=== PATIENT | female | born 1975 | race Caucasian/White ===

== ENCOUNTER 2016-11-14 22:59 | Emergency (ER) | payer BC ==
[2016-11-14 23:09] VITALS: BP 96/66; PULSE 58; TEMP 97.6; BMI 14.5
[2016-11-14] MEDS ORDERED: IBUPROFEN 400 MG TABLET (FP) PO ONE ×2 (23:19→23:23)
--- NOTE | 2016-11-14 23:25 | PDOC ---
History of Present Illness - General Chief Complaint: Chest Pain Stated Complaint: CHEST PAIN Time Seen by Provider: 11/14/16 23:00 - History of Present Illness Initial Comments: 11/14/16 23:19 41 y f hx of anorexia, admitted to in patient services for it. GERD. pte c/o lt sided chest pain on and off for a couple of weeks. no palpitations, dizziness, n /v. no sob. pain became worse today at ~12noon. constant. not related to activity. radiates to lt arm. in ed, pain still present. hx of pna/flu/ bronchitis last month. no fever 11/14/16 23:22 Past History - Past Medical History Allergies/Adverse Reactions: Allergies Allergy/AdvReac Type Severity Reaction Status Date / Time No Known Allergies Allergy Unverified 11/14/16 23:14 GI Disorders: Yes (HIATAL HERNEA, GERD, IBS) Psychiatric Problems: Yes (ANOREXIA) Other medical history: RAYNAUDS, OSTEOPOROSIS - Psycho/Social/Smoking Cessation Hx Suicidal Ideation: No Smoking History: Never smoked Review of Systems - Review of Systems Able to Perform ROS?: Yes Is the patient limited [place]ian proficient: No Constitutional: No: Symptoms Reported HEENTM: No: Symptoms Reported Respiratory: No: Symptoms reported Cardiac (ROS): Yes: Symptoms Reported, See HPI, Chest Pain ABD/GI: No: Symptoms Reported : No: Symptoms Reported Musculoskeletal: No: Symptoms Reported Neurological: No: Symptoms reported Psychiatric: Yes: Other (see hpi) All Other Systems: Reviewed and Negative *Physical Exam - Vital Signs Last Vital Signs Temp Pulse Resp BP Pulse Ox 97.6 F 58 L 16 96/66 100 11/14/16 23:07 11/14/16 23:07 11/14/16 23:07 11/14/16 23:07 11/14/16 23:07 - Physical Exam General Appearance: Yes: Appropriately Dressed, Cachetic. No: Apparent Distress HEENT: positive: Normal ENT Inspection Neck: positive: Supple. negative: Tender Respiratory/Chest: positive: Chest Tender (lt sided 4th ICS), Lungs Clear, Normal Breath Sounds. negative: Respiratory Distress Cardiovascular: positive: Regular Rhythm, Regular Rate, Bradycardia Neurologic: positive: Fully Oriented, Alert, Normal Mood/Affect, Normal Response , Motor Strength 5/5 *DC/Admit/Observation/Transfer Diagnosis at time of Disposition: Chest wall pain - Discharge Dispostion Disposition: HOME Condition at time of disposition: Stable - Patient Instructions Printed Discharge Instructions: DI for Atypical Chest Pain Additional Instructions: IBUPROFEN 200 MG 4 TIMES A DAY FOR 5 DAYS EAT FREQUENT, SMALL MEALS THROUGHOUT THE DAY RETURN IF WORSENING PAIN OR NEW SYMPTOMS
--- NOTE | 2016-11-17 08:42 | EKG ---
Test Reason : Blood Pressure : / mmHG Vent. Rate : 048 BPM Atrial Rate : 048 BPM P-R Int : 128 ms QRS Dur : 120 ms QT Int : 428 ms P-R-T Axes : 066 089 072 degrees QTc Int : 382 ms SINUS BRADYCARDIA NON-SPECIFIC INTRA-VENTRICULAR CONDUCTION DELAY WHEN COMPARED WITH ECG OF 14-NOV-2016 09:36, NO SIGNIFICANT CHANGE WAS FOUND Confirmed by SOUMYA RAY MD ([id number]) on 11/17/2016 8:42:03 AM Referred By: MD VICENTE Confirmed By:SOUMYA RAY MD
== END 2016-11-14 23:27 | disposition home or self-care (01) ==
LOC: FER 22:59
DX: R07.89 Other chest pain (principal); R63.0 Anorexia; Z68.1 Body mass index [BMI] 19.9 or less, adult; I73.00 Raynaud's syndrome without gangrene; M81.0 Age-related osteoporosis without current pathological fracture; K21.9 Gastro-esophageal reflux disease without esophagitis; K58.9 Irritable bowel syndrome, unspecified
CPT/HCPCS: 93005; 99281-25

== ENCOUNTER 2016-11-25 20:19 | Emergency (ER) | payer BC ==
[2016-11-25] MEDS ORDERED: SODIUM CHLORIDE 1,000 ML IV ONE (20:33)
[2016-11-25 20:39] VITALS: TEMP 98.3; BMI 14.2
[2016-11-25 20:51] LABS: PH,URINE 5.5 (4.5-8); URINE APPEARANCE Clear; URINE BILIRUBIN Negative (NEGATIVE); URINE BLOOD Negative (NEGATIVE); URINE GLUCOSE (UA) Negative (NEGATIVE); URINE KETONE Negative (NEGATIVE); URINE LEUK ESTERASE Negative (NEGATIVE); URINE NITRITE Negative (NEGATIVE); URINE PROTEIN Negative (NEGATIVE); URINE UROBILINOGEN 0.2 E.U/dl (0.2-1.0)
[2016-11-25 20:52] LABS: URINE COLOR YELLOW
--- NOTE | 2016-11-25 21:00 | PDOC ---
History of Present Illness - General History Source: Patient Exam Limitations: No Limitations - History of Present Illness Initial Comments: 11/25/16 21:01 The patient is a 41 year old female with a PMHx of anorexia presents to the ED sent from eating disorder facility for low blood pressure. Patient was discharged from [facility] yesterday after a 6 day stay for fever, body aches, and rash. The patient reports that she felt fine today, but around mid afternoon she experienced subjective fever and chills. She currently reports headache. She reports her BP is normally 90/50. She denies nausea, vomiting, diarrhea. She denies chest pain, SOB. PAST MEDICAL HISTORY: anorexia PAST SURGICAL HISTORY: no significant history FAMILY HISTORY: no pertinent history SOCIAL HISTORY: Pt lives with family and is employed. MEDICATIONS: reviewed ALLERGIES: As per nursing notes Review of Systems: General: + fevers, + chills, no weakness, no weight loss HEENT: No change in vision. No sore throat,. No ear pain CardioVascular: No chest pain or shortness of breath Respiratory: No cough, or wheezing. Gastrointestinal: no nausea, vomiting, diarrhea or constipation, No rectal bleeding Genitourinary: No dysuria, hematuria, or frequency Musculoskeletal: No joint or muscle pain or swelling Neurologic: + headache, No vertigo, dizziness or loss of consciousness Psychiatric: No depression Skin: No rashes or easy bruising Endocrine: No increased thirst or abnormal weight change Allergic: No skin or latex allergy All other systems reviewed and normal Physical Exam: General: Well-nourished well-developed individual, no acute distress HEENT: Throat: Normal, tonsils normal, no erythema or exudate Neck: Supple, no meningeal signs, no lymphadenopathy Eyes: Pupils equal reactive and round, extraocular motion intact Chest: Nontender to palpation Cardiac: S1-S2 normal, regular rate and rhythm, no murmurs rubs or gallops Respiratory: Lungs clear to auscultation bilateral Abdomen: Soft, nondistended, normal bowel sounds, nontender to palpation diffusely Extremities: Warm, dry, no cyanosis, clubbing, or edema Skin: No rashes Neuro: Alert and oriented x3, nonfocal exam, grossly intact, normal gait Psych: Normal mood and affect <Tish Lyons - Last Filed: 11/25/16 21:01> - General History Source: Patient Exam Limitations: No Limitations - History of Present Illness Initial Comments: 11/25/16 21:22 A portion of this note was documented by scribe services under my direction. I have reviewed the details of the note, within reason, and agree with the documentation. The case summary and management plan written by me. Assessment and plan: This is a 41-year-old female who comes in from an eating disorder treatment Center for hypotension. Patient's systolic blood Pressure as per patient is normally in the low 90s. Here in the emergency room her blood pressure was 86 and lying and 96 on standing. So she is not orthostatic. However she was given some IV fluids and a CBC was sent. Patient had been having some fevers several days ago and was diagnosed with a viral infection. Patient's white count is 13.0 Patient given a liter of fluid discharged back to her eating disorder Center. <Rachel Matthews I - Last Filed: 11/25/16 22:41> - General Chief Complaint: Blood Pressure Problem Stated Complaint: CHILLS, LOW BP Time Seen by Provider: 11/25/16 20:23 Past History <Tish Lyons - Last Filed: 11/25/16 21:01> - Past Medical History GI Disorders: Yes (HIATAL HERNEA, GERD, IBS) Psychiatric Problems: Yes (ANOREXIA) - Psycho/Social/Smoking Cessation Hx Suicidal Ideation: No Smoking History: Never smoked Hx Alcohol Use: No Drug/Substance Use Hx: No Substance Use Type: None <Rachel Matthews I - Last Filed: 11/25/16 22:41> - Past Medical History Allergies/Adverse Reactions: Allergies Allergy/AdvReac Type Severity Reaction Status Date / Time No Known Allergies Allergy Unverified 11/14/16 23:14 Home Medications: Ambulatory Orders Docusate Sodium [Colace -] 100 mg PO TID 11/14/16 Doxylamine Succinate [Unisom] 25 mg PO HS 11/14/16 Multivitamin [Poly-Vitamin] 2 each PO DAILY 11/14/16 [place] 3/Dha/Epa/Other Om3/D3 [[place]-3 + Vitamin D3 Liquid] 1 tab PO HS 11/14/16 Ranitidine HCl [Zantac] 150 mg PO BID 11/14/16 Sertraline HCl [Zoloft] 100 mg PO DAILY 11/14/16 Ibuprofen [Motrin -] 400 mg PO Q6H PRN 11/25/16 Magnesium Oxide [Magnesium] 500 mg PO HS 11/25/16 Melatonin 3 mg PO HS PRN 11/25/16 *Physical Exam - Vital Signs Last Vital Signs Temp Pulse Resp BP Pulse Ox 98.3 F 98 H 17 94/63 99 11/25/16 20:22 11/25/16 20:22 11/25/16 20:22 11/25/16 20:22 11/25/16 20:22 <Tish Lyons A - Last Filed: 11/25/16 21:01> - Vital Signs Last Vital Signs Temp Pulse Resp BP Pulse Ox 98.3 F 98 H 17 94/63 99 11/25/16 20:22 11/25/16 20:22 11/25/16 20:22 11/25/16 20:22 11/25/16 20:22 <Rachel Matthews I - Last Filed: 11/25/16 22:41> ED Treatment Course - LABORATORY CBC & Chemistry Diagram: 11/25/16 20:50 - ADDITIONAL ORDERS Additional order review: Laboratory Results 11/25/16 11/25/16 20:45 20:45 Urine Color Yellow Urine Appearance Clear Urine pH 5.5 Ur Specific [place] <= 1.005 Urine Protein Negative Urine Glucose (UA) Negative Urine Ketones Negative Urine Blood Negative Urine Nitrite Negative Urine Bilirubin Negative Urine Urobilinogen 0.2 e.u/dl Ur Leukocyte Esterase Negative Urine HCG, Qual Negative <Tish Lyons - Last Filed: 11/25/16 21:01> - LABORATORY CBC & Chemistry Diagram: 11/25/16 20:50 - ADDITIONAL ORDERS Additional order review: Laboratory Results 11/25/16 11/25/16 20:45 20:45 Urine Color Yellow Urine Appearance Clear Urine pH 5.5 Ur Specific [place] <= 1.005 Urine Protein Negative Urine Glucose (UA) Negative Urine Ketones Negative Urine Blood Negative Urine Nitrite Negative Urine Bilirubin Negative Urine Urobilinogen 0.2 e.u/dl Ur Leukocyte Esterase Negative Urine HCG, Qual Negative <Rachel Matthews I - Last Filed: 11/25/16 22:41> *DC/Admit/Observation/Transfer - Attestations Scribe Attestion: 11/25/16 21:02 Documentation prepared by Tish Lyons, acting as medical office manager for Rachel Matthews MD. <Tish Lyons - Last Filed: 11/25/16 21:01> <Rachel Matthews I - Last Filed: 11/25/16 22:41> Diagnosis at time of Disposition: Viral illness - Discharge Dispostion Disposition: HOME Condition at time of disposition: Good - Referrals Referrals: Tete Tapia MD [Primary Care Provider] - - Patient Instructions Additional Instructions: Make sure you stay well hydrated and drinks 6-8 glasses of water a day. Return to the emergency department immediately with ANY new, persistent or worsening symptoms. Continue any medications as previously prescribed by your physician. You should follow up with your primary doctor as soon as possible regarding today's emergency department visit. . Please make sure your doctor reviews the results of your emergency evaluation. Thank you for coming to the Emergency Department today for your care. It was a pleasure to see you today. Please note that your evaluation is INCOMPLETE until you follow-up with your doctor.
[2016-11-25 21:04] LABS: MEAN CELL VOLUME 94.2 fl (80-96)
[2016-11-25 21:12] LABS: MCH 31.9 pg (25.7-33.7); MCHC 33.9 g/dl (32.0-36.0); MEAN PLT VOLUME 6.1 fl (7.5-11.1); PLATELET COUNT 235 K/MM3 (134-434)
[2016-11-25 21:24] VITALS: BP 94/63; PULSE 96
== END 2016-11-25 21:45 | disposition home or self-care (01) ==
LOC: FER 20:19
PROC: 3E0337Z Introduction of Electrolytic and Water Balance Substance into Peripheral Vein, Percutaneous Approach (ICD-10-PCS; principal; 2016-11-25)
DX: B34.9 Viral infection, unspecified (principal); R63.0 Anorexia; Z68.1 Body mass index [BMI] 19.9 or less, adult; K21.9 Gastro-esophageal reflux disease without esophagitis
CPT/HCPCS: 36415; 81003; 84703; 85025; 99282-25